=== PATIENT | female | born 1960 | race African-American/Black ===

== ENCOUNTER 2018-07-28 17:00 | Emergency (ER) | payer BC ==
[~2018-07-28] VITALS: Ht 157.5 cm; Wt 95.3 kg
[2018-07-28] MEDS ORDERED: TRAMADOL 50 MG50 MG PO (18:53)
[2018-07-28] MEDS ORDERED: ZYLOPRIM300 MG PO (18:53)
[2018-07-28] MEDS ORDERED: LOPRESSOR25 PO (18:53)
[2018-07-28] MEDS ORDERED: NAPROSYN500 MG PO (19:06)
[2018-07-28] MEDS ORDERED: NORFLEX100 MG PO (19:06)
[2018-07-28 20:37] VITALS: BP 212/116
== END 2018-07-28 20:41 | disposition home or self-care (01) ==
LOC: ER 17:00
DX: S86.912A Strain of unspecified muscle(s) and tendon(s) at lower leg level, left leg, initial encounter (principal); X58.XXXA Exposure to other specified factors, initial encounter; Y93.89 Activity, other specified; Y92.89 Other specified places as the place of occurrence of the external cause; Y99.8 Other external cause status; I10 Essential (primary) hypertension; Z85.43 Personal history of malignant neoplasm of ovary; M10.9 Gout, unspecified; Z88.1 Allergy status to other antibiotic agents; Z88.8 Allergy status to other drugs, medicaments and biological substances

== ENCOUNTER 2021-02-12 15:09 | Emergency (ER) | payer BC ==
[~2021-02-12] VITALS: Ht 157.5 cm; Wt 93.0 kg
[~2021-02-12 15:09] MED LIST: LOPRESSOR25 PO; NAPROSYN500 MG PO; NORFLEX100 MG PO; TRAMADOL 50 MG50 MG PO; ZYLOPRIM300 MG PO
[2021-02-12 15:11] VITALS: BP 220/110
== END 2021-02-12 16:49 | disposition left against medical advice (07) ==
LOC: ER 15:09
DX: R20.0 Anesthesia of skin (principal); M54.50 Low back pain, unspecified; I10 Essential (primary) hypertension; M10.9 Gout, unspecified; Z53.21 Procedure and treatment not carried out due to patient leaving prior to being seen by health care provider; Z85.43 Personal history of malignant neoplasm of ovary; Z90.710 Acquired absence of both cervix and uterus; Z88.1 Allergy status to other antibiotic agents; Z88.8 Allergy status to other drugs, medicaments and biological substances